=== PATIENT | female | born 1995 | race Caucasian/White ===

== ENCOUNTER → 2021-03-02 | Outpatient (CLI) | payer BC ==
[~2021-03-02] MED LIST: TAMIFLU75 MG PO
== END ==
LOC: US 02-25 13:30
DX: N60.02 Solitary cyst of left breast (principal)
CPT/HCPCS: 76641-LT

== ENCOUNTER → 2021-04-18 | Outpatient (CLI) | payer BC | LOC: US 09:40 | DX: D24.2 Benign neoplasm of left breast (principal); Z80.0 Family history of malignant neoplasm of digestive organs | CPT/HCPCS: 77065 ==